=== PATIENT | female | born 1975 | race Caucasian/White ===

== ENCOUNTER 2016-07-06 18:26 | Emergency (ER) | payer SELFPAY ==
[~2016-07-06] VITALS: Ht 165.1 cm; Wt 98.9 kg
[~2016-07-06 18:26] MED LIST: HCTZ PO; LIPITOR40 MG PO; PREVACID15 MG PO
[2016-07-06 18:49] VITALS: BP 139/78
--- NOTE | 2016-07-06 22:03 | NUR ---
PT TAKEN TO BED 5
--- NOTE | 2016-07-06 22:22 | NUR ---
Suzan adames in [facility] - 07/06/16 at [address] Paul evaluating patient at bedside.
--- NOTE | 2016-07-06 22:28 | NUR ---
Dr. Paul evaluating patient at bedside.
[2016-07-06] MEDS ORDERED: ACETAMIN/CODEINE 120/12MG-5ML 5 ML UDC PO ONE (22:30)
--- NOTE | 2016-07-06 22:30 | NUR ---
PATIENT PRESENTS TO ED WITH C/O FEVER CHILLS BODYACHES X2 DAYS--- DENIES N/V/D; SKIN IS PINK/WARM/DRY; AAOX4 WITH EVEN AND STEADY GAIT; LUNGS CLEAR BL; HR EVEN AND REGULAR; PT DENIES ANY CP, SOB, OR COUGH AT THIS TIME; PATIENT STATES PAIN OF 7/10 AT THIS TIME; VSS; PATIENT POSITIONED FOR COMFORT; HOB ELEVATED; BEDRAILS UP X2; BED DOWN. ER MD MADE AWARE OF PT STATUS.
--- NOTE | 2016-07-06 22:56 | NUR ---
X-Ray at bedside.
--- NOTE | 2016-07-06 22:59 | NUR ---
cxr at bedside being done
[2016-07-06 23:55] VITALS: BP 99/60
--- NOTE | 2016-07-06 23:55 | NUR ---
Patient discharged with v/s stable. Written and verbal after care instructions given and explained. Patient alert, oriented and verbalized understanding of instructions. Ambulatory with steady gait. All questions addressed prior to discharge. ID band removed. Patient advised to follow up with PMD. Rx of azithromycin, naprosyn, guaiatussin given. Patient educated on indication of medication including possible reaction and side effects. Opportunity to ask questions provided and answered.
== END 2016-07-06 23:55 | disposition home or self-care (01) ==
LOC: MED 18:26
DX: J20.9 Acute bronchitis, unspecified (principal); I10 Essential (primary) hypertension
CPT/HCPCS: 36415; 71010; 87804; 99285; Q0092